=== PATIENT | female | born 1975 ===

== ENCOUNTER → 2022-12-06 | Outpatient (CLI) | payer SELFPAY | LOC: LAB 11:34 → LAB SHORT 11:34 | DX: L40.3 Pustulosis palmaris et plantaris (principal) | CPT/HCPCS: 87102; 87106; 87186 ==

== ENCOUNTER → 2023-01-18 | Outpatient (CLI) | payer SELFPAY | LOC: LAB SHORT 15:22 → LAB 15:22 | DX: L40.0 Psoriasis vulgaris (principal); L40.3 Pustulosis palmaris et plantaris; B35.4 Tinea corporis | CPT/HCPCS: 87102 ==